=== PATIENT | male | born 1990 | race Caucasian/White ===

== ENCOUNTER 2021-07-24 23:15 | Emergency (ER) | payer OTHER ==
[~2021-07-24 23:15] MED LIST: DOXYCYCLINE HY100 MG PO; LODINE CAP 300300 MG PO; VIBRAMYCIN 100100 MG PO
[2021-07-25] MEDS ORDERED: CEPHALEXIN500 MG PO (00:30)
[2021-07-25] MEDS ORDERED: BACTRIM DS TAB1 EACH PO (00:30)
== END 2021-07-25 00:44 | disposition home or self-care (01) ==
LOC: ER1 23:15
DX: L02.511 Cutaneous abscess of right hand (principal); B95.62 Methicillin resistant Staphylococcus aureus infection as the cause of diseases classified elsewhere; F17.210 Nicotine dependence, cigarettes, uncomplicated
CPT/HCPCS: 10060; 99283